=== PATIENT | male | born 1970 | race Caucasian/White ===

== ENCOUNTER → 2016-09-02 | Outpatient (CLI) | payer OTHER ==
[~2016-09-02] MED LIST: FLOMAX0.4 MG PO; NOHOMEMEDS; PERCOCET 5/31 TABLET PO; ZOFRAN4 MG PO
== END | disposition home or self-care (01) ==
LOC: NUC 07:18
DX: R11.2 Nausea with vomiting, unspecified (principal); K21.9 Gastro-esophageal reflux disease without esophagitis; K44.9 Diaphragmatic hernia without obstruction or gangrene
CPT/HCPCS: 78264; A9541